=== PATIENT | female | born 1945 | race Caucasian/White ===

== ENCOUNTER → 2017-02-13 | Outpatient (CLI) | payer MEDICARE, BC ==
[~2017-02-13] MED LIST: ACETAMINOPHEN PO; ACIPHEX20 MG PO; ADVAIR 2501 DISK W/D PO; ASPIRIN PO; ASTEPRO205.5 MCG/; ATENOLOL PO; CERTAGEN PO; CLEOCIN PO; COUMADIN PO; DEXILANT60 MG PO; IBUPROFEN800 MG PO; INDOMETHACIN75 MG PO; KEFLEX; LISINOPRIL PO; LOVENOX SUBQ; MAXZIDE 75/50 T1 TAB PO; NASONEX17 GM; PRAVACHOL20 MG PO; PRO-AIR; SINGULAIR PO; SPIRIVA18 MCG INH; SYMBICORT; SYMBICORT INH; SYNTHROID PO; SYNTHROID0.1 MG PO
--- NOTE | ~2017-02-13 | MY11 ---
[facility] A Service of [facility] RADIOLOGY TEXT RESULTS PATIENT: CATARINO SALEH LOCATION: [facility] : 45 UNIT #: [id number] AGE: [address]: Vivien Magdaleno MD SEX: F ORDER DR: [id number] [place], [place] [address] [id number] O MR#: [id number] #: [id number] NAME: CATARINO SALEH. : 1945 SEX: F STUDY DATE/TIME: 02/13/2017 9:01 UNIT: [facility] ROOM: STUDY DESCRIPTION: MY Mammogram Screening Dig [place] Attending Physician: Vivien Magdaleno M.D. Ordering Physician: Vivien Magdaleno M.D. Primary Care Physician: Vivien Magdaleno M.D. MEDICAL IMAGING REPORT This report is preliminary unless electronic signature is present EXAM Bilateral digital screening mammogram with CAD 02/13/2017 HISTORY 71-year-old female with family history of breast cancer in mother diagnosed at age of 45. No personal history of breast cancer or current complaints. COMPARISON Bilateral screening mammogram 08/03/2015, 08/19/2013, 05/30/2012. FINDINGS CC and MLO views were obtained of each breast utilizing digital technique and reviewed with an FDA-approved CAD device. Scattered fibroglandular densities are present bilaterally. The parenchymal pattern appears stable. No new or suspicious nodule is identified. A few fibronodular densities within the medial hemisphere left breast appear unchanged. Benign calcification in the subareolar right breast, unchanged. No architectural distortion. IMPRESSION BIRADS category 2. Benign findings. Routine bilateral screening mammogram is recommended in 1 year. Patients over the age of 40 are entered into a reminder system with target due date for the next mammogram. A result letter will also be sent to the patient. BIRADS: 2 Benign finding Dictated by... [facility] A Service [facility] RADIOLOGY TEXT RESULTS PATIENT: CATARINO SALEH LOCATION: [facility] : 45 UNIT #: [id number] AGE: [address]: Vivien Magdaleno MD SEX: F ORDER DR: Collette Chang M.D. THIS IS AN ELECTRONICALLY VERIFIED REPORT Collette Chang M.D. at 02/14/2017 7:08 AM CALEB/jacqueline TD: 02/13/2017 13:06 JOB #: [id number] MEDICAL IMAGING REPORT Page 1 of 1 COPY
== END | disposition home or self-care (01) ==
LOC: CWCC 08:47
DX: Z12.31 Encounter for screening mammogram for malignant neoplasm of breast (principal); Z80.3 Family history of malignant neoplasm of breast
CPT/HCPCS: G0202